=== PATIENT | female | born 1980 | race Caucasian/White ===

== ENCOUNTER → 2016-10-07 | Outpatient (CLI) | payer BC ==
[2016-10-07 09:31] LABS: CH 30.5; CHCM 33.3; HCT 35.3 % (34.0-46.0); HDW 2.86; HGB 11.3 gm/dL (11.4-16.0); MCH 29.6 pg (25.0-35.0); MCHC 32.1 g/dL (31.0-37.0); MCV 92.1 fL (80.0-100.0); Mean Platelet Volume 6.8; RBC 3.83 m/uL (3.80-5.40); RDW 13.2 % (11.5-15.5); WBC 10.7 k/uL (3.8-10.6)
== END | disposition home or self-care (01) ==
LOC: LABWHC1 07:45
PROVIDERS: ATTEND Obstetrics & Gynecology
DX: Z34.82 Encounter for supervision of other normal pregnancy, second trimester (principal); Z3A.00 Weeks of gestation of pregnancy not specified
CPT/HCPCS: 36415; 82950; 85027

== ENCOUNTER → 2016-11-24 | Outpatient (CLI) | payer BC ==
--- NOTE | 2016-11-24 14:03 | US ---
EXAMINATION TYPE: US OB anatomy transabd DATE OF EXAM: 11/24/2016 12:49 PM COMPARISON: NONE HISTORY: LGA TECHNIQUE: Transabdominal (TA) EXAM MEASUREMENTS: GESTATIONAL AGE / DATING Physician Established: (32 weeks/2 days) EDC: 01/17/17 Dates by LMP: unknown Dates by First Scan: no prior Dates by Current Scan for: (35 weeks/1 days) EDC: 12/28/16 SURVEY IUP: Single PLACENTA: Anterior PREVIA: Low Lying GAIL: 11.3 cm Normal CERVICAL LENGTH (transabdominal: norm > 3.0cm): 3.1 cm BIOMETRY PRESENTATION: Vertex LIE: Longitudinal BPD: 8.9 cm 36 weeks / 0 days HC: 32.1 cm 36 weeks / 2 days AC: 33.2 cm 37 weeks / 1 days FL: 6.6 cm 34 weeks / 1 days ESTIMATED WEIGHT IN GRAMS: 2870 grams ESTIMATED WEIGHT IN LBS/OZS: 6 lbs. 5 oz. WEIGHT PERCENTAGE BASED ON ESTABLISHED DATE: >97 % HC/AC: 0.97 normal FL/AC: 20.02 normal HEART RATE: 159 bpm RHYTHM: Normal ANATOMY SEEN (within normal limits): * Lateral Vent (< 1 cm) 0.8 cm Choroid Plexus (bilateral) Four Chamber Heart Stomach Situs Nose / Lips Diaphragm Kidneys (bilateral) Bladder Three Vessel Cord Longitudinal Spine Transverse Spine ANATOMY NOT SEEN: due to age and position * Cisterna Magna (< 1.1 cm) cm * Nuchal Fold (< 0.6 cm) cm * Cerebellum (varies with age) cm Arms (bilateral) Legs (bilateral) Cord Insert Outflow tracts: LVOT/RVOT Midline Falx Cavus Septi Pellucidi TECHNOLOGIST IMPRESSION: Single viable IUP 35wks/1day with DONOVAN of 12/28/16. Placenta appears low lyi ng IMPRESSION: Single intrauterine gestation estimated at 35 weeks 1 day gestation based on the current ultrasound m easurements. This would have a EDC of 12/28/2016. Correlate this with her physician establish EDC. Thi s gestational age appears advanced from the predicted gestational age. 2. Cardiac activity measures 159 bpm. 3. Low-lying placenta. 4. Some small parts are not evaluated due to positioning and age of gestation.
== END | disposition home or self-care (01) ==
LOC: RADUSWWP 12:14
PROVIDERS: ATTEND Obstetrics & Gynecology
DX: O44.43 Low lying placenta NOS or without hemorrhage, third trimester (principal); Z3A.35 35 weeks gestation of pregnancy
CPT/HCPCS: 76811

== ENCOUNTER → 2016-12-13 | Outpatient (CLI) | payer BC ==
--- NOTE | 2016-12-13 15:16 | US ---
EXAMINATION TYPE: US OB DATE OF EXAM: 12/13/2016 2:09 PM COMPARISON: NONE HISTORY: LGA TECHNIQUE: EXAM MEASUREMENTS: GESTATIONAL AGE / DATING Physician Established: (35 weeks/0 days) EDC: 01/17/2017 Dates by LMP: UNKNOWN Dates by First Scan: (37 weeks/6 days) EDC: 12/28/2016 Dates by Current Scan for: (37 weeks/1 days) EDC: 01/02/2017 SURVEY IUP: Single PLACENTA: Anterior PREVIA: No previa GAIL: 13.8 cm Normal CERVICAL LENGTH (transabdominal: norm > 3.0cm): 3.2 cm BIOMETRY PRESENTATION: Vertex BPD: 8.9 cm 36 weeks / 2 days HC: 32.9 cm 37 weeks / 4 days AC: 34.4 cm 38 weeks / 2 days FL: 7.3 cm 37 weeks / 3 days ESTIMATED WEIGHT IN GRAMS: 3308 grams ESTIMATED WEIGHT IN LBS/OZS: 7 lbs. 5 oz. WEIGHT PERCENTAGE BASED ON ESTABLISHED DATE: >97 % HC/AC: 0.9 FL/AC: 21 HEART RATE: 133 bpm RHYTHM: Normal LGA, office called, and results given to Stephanie of baby measuring 2 weeks greater than dates and gre ater than 97TH percentile. IMPRESSION: ADLER FETUS PRESENT IN A VERTEX LIE WITH A GESTATIONAL AGE OF 37 WEEKS 1 DAY +/- 3 WEEKS. ESTIMAT ED DATE OF CONFINEMENT BASED ON THIS EXAMINATION IS 01/02/2017. THIS IS DISCORDANT WITH THE MENSTRUAL AGE.
== END | disposition home or self-care (01) ==
LOC: RADUSWWP 13:39
PROVIDERS: ATTEND Obstetrics & Gynecology
DX: O36.63X0 Maternal care for excessive fetal growth, third trimester, not applicable or unspecified (principal); Z3A.37 37 weeks gestation of pregnancy
CPT/HCPCS: 76805

== ENCOUNTER 2017-01-14 06:01 | Inpatient (IN) | payer BC ==
--- NOTE | 2017-01-13 06:44 | P.HPOB ---
History of Present Illness H&P Date: 01/13/17 Chief Complaint: Patient is presenting for primary for macrosomia This patient is a pleasant 36-year-old 3 para 1 female estimated date of confinement 01/17/2017 estimated gestational age 39 and 4/7 weeks gestation who presents to labor and delivery for primary section secondary to suspected macrosomia and history of prolonged second stage of labor with previous . Patient's care is such that she delivered her first baby at 37 weeks and did not deliver here but her story was such that she remained complete for a very long period of time. That baby was only 6-1/2 pounds. This fetus is estimated to be most likely 8-9 pounds and I discussed issues with delivery and we've elected to proceed with section at this time. Patient's care has otherwise been uncomplicated with the exception of vulvar condyloma. Review of Systems Constitutional: Denies chills, Denies fever Ears, nose, mouth and throat: Denies headache, Denies sore throat Cardiovascular: Denies chest pain, Denies shortness of breath Respiratory: Denies cough Gastrointestinal: Reports heartburn Genitourinary: Reports Menstruation: Reports amenorrhea Musculoskeletal: Denies myalgias Integumentary: Denies pruritus, Denies rash Neurological: Denies numbness, Denies weakness Psychiatric: Denies anxiety, Denies depression Past Medical History Past Medical History: Thyroid Disorder Additional Past Medical History / Comment(s): Patient has known hypothyroidism and also a history of endometriosis. History of Any Multi-Drug Resistant Organisms: None Reported Past Surgical History: Adenoidectomy, Tonsillectomy Additional Past Surgical History / Comment(s): Patient has had laparoscopically with left ovarian cyst removal and wisdom tooth extraction. Past Anesthesia/Blood Transfusion Reactions: No Reported Reaction Past Psychological History: No Psychological Hx Reported Smoking Status: Never smoker Past Alcohol Use History: None Reported Past Drug Use History: None Reported Medications and Allergies Home Medications Medication Instructions Recorded Confirmed Type No.77/Iron Asp Gly/FA 1 each PO 01/04/17 History [Prenate Star Tablet] Ranitidine HCl [Zantac] 75 mg PO PRN 01/04/17 History Allergies Allergy/AdvReac Type Severity Reaction Status Date / Time No Known Allergies Allergy Verified 01/04/17 15:02 Exam - OBG Physical Exam Abdomen: bowel sounds normal, no diffuse tenderness, no bruit present, no guarding noted, no hepatomegaly, no splenomegaly, no mass Vulva: both: condyloma Vagina: normal moisture, no discharge Cervix: Cervix in the office was closed. Uterus: enlarged (Fundal height is greater than stated dates.) Results blood work shows she is O+, rubella immune, RPR nonreactive, hepatitis B negative, Glucola was normal, group B strep was positive, ultrasounds of shown macrosomia. Estimated weight is 8-9 pounds. Assessment and Plan (1) Third trimester Narrative/Plan: This is a pleasant 36-year-old 3 para 1 female 39-4/7 weeks gestation with suspected macrosomia and history of prolonged second stage previous is presenting for primary section. Patient and I discussed the surgery in detail including the risks of infection, bleeding, possible injury bowel, bladder, vessels, and other organs. She also understands risk of DVT and pulmonary embolism. All the patient's questions are answered and a written consent is obtained. Plan is primary low transverse section. Status: Acute (2) macrosomia during in third trimester Status: Acute (3) History of prolonged second stage labor , currently Status: Acute (4) Group B streptococcal carriage complicating Status: Acute
[2017-01-13 11:45] VITALS: BMI 29.9
[2017-01-14] MEDS ORDERED: LACTATED RINGERS 1,000 ML IV SCH (06:10)
[2017-01-14] MEDS ORDERED: CITRIC ACID-SODIUM CITRATE 15 ML CUP PO ONE (06:10)
[2017-01-14] MEDS ORDERED: LACTATED RINGERS 1,000 ML IV ONE (06:10)
[2017-01-14 06:19] LABS: Basophils # (A) 0.1 k/uL (0-0.2); Basophils % (A) 1 %; CH 29.6; CHCM 33.4; Eosinophils # (A) 0.3 k/uL (0-0.7); Eosinophils % (A) 3 %; HCT 35.8 % (34.0-46.0); HDW 3.05; HGB 11.7 gm/dL (11.4-16.0); Luc % (Auto) 3; Lymphocytes % (A) 27 %; MCH 29.1 pg (25.0-35.0); MCHC 32.6 g/dL (31.0-37.0); MCV 89.1 fL (80.0-100.0); Mean Platelet Volume 7.7; Monocytes # (A) 0.5 k/uL (0-1.0); Monocytes % (A) 4 %; Neutrophils # (A) 7.1 k/uL (1.3-7.7); Neutrophils % (A) 63 %; RBC 4.02 m/uL (3.80-5.40); RDW 13.9 % (11.5-15.5); WBC 11.3 k/uL (3.8-10.6); WBC (Perox) 11.95
[2017-01-14] MEDS ORDERED: ceFAZolin 2 GM in SODIUM CHLORIDE 0.9% 100 ML IVPB ONE (07:14)
[2017-01-14] MEDS ORDERED: NALBUPHINE 10 MG/ML AMPUL ONE (07:47)
[2017-01-14] MEDS ORDERED: OXYTOCIN 10 UNIT/ML 1 ML VIAL ONE (07:47)
[2017-01-14] MEDS ORDERED: ONDANSETRON 4 MG/2 ML VIAL ONE (07:47)
[2017-01-14] MEDS ORDERED: KETOROLAC 30 MG/ML 1 ML VIAL ONE (07:47)
[2017-01-14] MEDS ORDERED: MORPHINE SULFATE (PF) 0.3 MG/0.3 ML SYR ONE (07:47)
[2017-01-14] MEDS ORDERED: PHENYLEPHRINE-0.9% NACL SYG 1 MG/10 ML SYRINGE ONE (07:47)
--- NOTE | 2017-01-14 08:36 | P.OP ---
Date of Procedure: 01/14/17 Preoperative Diagnosis: #1: 39-4/7 weeks . #2: Suspected macrosomia. #3: History of prolonged second stage of labor Postoperative Diagnosis: #1: Same #2: Nuchal cord 1 Procedure(s) Performed: Primary low transverse section Anesthesia: spinal Surgeon: Shravan Rodgers Recreation Facilities Supervisor #1: Prerna Beltran Estimated Blood Loss (ml): 800 Pathology: other (Placenta) Condition: stable Disposition: floor Indications for Procedure: Please see dictated H&P for intimate details of this patient's admission. Brief summary is a pleasant 36-year-old 3 para 1 female 39-4/7 weeks gestation who is admitted for primary section secondary to suspected macrosomia and history of prolonged second stage of labor. Patient understands this surgery and risks including risks of infection, bleeding, possible injury bowel, bladder, vessels, and other organs. She also understands risk of DVT and pulmonary embolism. All the patient's questions are answered and written consent is obtained. Operative Findings: This is a vigorous viable female infant Apgars 9 and 10 delivery time is 0806 hrs. Description of Procedure: This patient has a Argueta catheter placed to straight drain. She subsequently taken to the operating room where she is laid in the supine position. She sat up and spinal anesthetic is administered without incident. With an adequate level of anesthesia she has abdominal prep and drape. Scalpels and taken Pfannenstiel skin incision is then made. A second scalpel is taken down the fascia and the fascia scored with a knife. Fascial incision extended bilaterally using the Gonzales scissors. Fascia is then dissected sharply off the rectus muscles. Rectus muscles are and the peritoneum was identified and entered sharply. Peritoneal incision extended superior and inferior without difficulty. Bladder blade is then placed. Bladder peritoneum was taken off the lower uterine segment sharply. A low transverse uterine incision is then made, and using a hemostat I enter the uterine cavity bluntly and there is loss of clear fluid. This incision is extended bluntly. The infant's head is then guided through the incision with fundal pressure. Mouth and nares are bulb suctioned. Is a nuchal cord 1 which is reduced. We then have deliver the anterior and posterior shoulder and rest this 's body. Vigorous viable female infant Apgars 9 and 10 delivery time was 0806 hrs. After delivery of the the umbilical cords doubly clamped and cut appears to be trivascular. Placenta is then manually extracted intact. Uterus is then externalized and the uterine incision demarcated with Morales clamps. Uterine incision closed using 0 Vicryl running locked fashion in 2 layers. Excellent hemostasis is noted. Bladder peritoneum was then reapproximated using a 3-0 Vicryl. Excess fluid is removed from the abdomen and pelvis. Uterus tubes and ovaries appear normal for term gestation. Parietal peritoneum was then closed using 0 Vicryl running fashion. Rectus muscles reapproximated in 0 Vicryl interrupted fashion. Fascia is then closed using 0 PDS. Fascial incision is intact and hemostatic. Subcutaneous tissues and closed using a 3-0 Vicryl. Skin is and closed using moira. Good hemostasis is noted sterile dressing is applied. All counts are correct 3. There are no complications. and mother taken the birthing suite in satisfactory condition.
[2017-01-14] MEDS ORDERED: diphenhydrAMINE 50 MG/ML 1 ML VIAL IVP PRN (08:51)
[2017-01-14] MEDS ORDERED: SIMETHICONE 80 MG CHEWABLE PO PRN (08:51)
[2017-01-14] MEDS ORDERED: Acetaminophen-Codeine 300-30mg TAB PO PRN (08:51)
[2017-01-14] MEDS ORDERED: METOCLOPRAMIDE 5 MG/ML 2 ML VIAL IVP PRN (08:51)
[2017-01-14] MEDS ORDERED: OXYTOCIN 30 UNITS/500 ML NS 30 UNIT in SALINE 1 500ML.BAG IV SCH (08:51)
[2017-01-14] MEDS ORDERED: diphenhydrAMINE 25 MG CAP PO PRN (08:51)
[2017-01-14] MEDS ORDERED: ACETAMINOPHEN TAB 325 MG TAB PO PRN (08:51)
[2017-01-14] MEDS ORDERED: NALOXONE 0.4 MG/ML 1 ML VIAL IV PRN (08:51)
[2017-01-14] MEDS ORDERED: ZOLPIDEM 5 MG TAB PO PRN (08:51)
[2017-01-14] MEDS ORDERED: ONDANSETRON 4 MG/2 ML VIAL IVP PRN (08:51)
[2017-01-14] MEDS: SENNOSIDES-DOCUSATE SODIUM 1 EACH TAB PO SCH ×2 (12:30→20:03)
[2017-01-14] MEDS: KETOROLAC 30 MG/ML 1 ML VIAL IVP PRN ×2 (15:10→22:06)
[2017-01-14] MEDS: LACTATED RINGERS 1,000 ML IV SCH ×2 (21:58→21:59)
[2017-01-15] MEDS: LACTATED RINGERS 1,000 ML IV SCH ×2 (04:43→19:52)
[2017-01-15] MEDS: KETOROLAC 30 MG/ML 1 ML VIAL IVP PRN (05:13)
--- NOTE | 2017-01-15 06:27 | P.PNOBGPC ---
Subjective - Subjective Patient reports: Reports appetite normal, Reports voiding normally, Reports pain well controlled, Reports ambulating normally : doing well Objective - Vital Signs Latest vital signs: Vital Signs Temp Pulse Resp BP Pulse Ox 01/15/17 04:00 97.8 F 83 16 109/60 01/15/17 00:00 98.4 F 71 16 93/59 01/14/17 20:00 98.4 F 74 16 111/72 01/14/17 16:00 98.8 F 63 16 107/67 01/14/17 12:00 97.8 F 67 14 107/57 97 01/14/17 10:53 96.9 F L 77 14 100/63 01/14/17 10:23 77 16 108/69 01/14/17 09:53 75 14 109/67 01/14/17 09:38 72 14 110/74 01/14/17 09:23 66 14 105/69 01/14/17 09:08 97 14 117/73 01/14/17 08:53 97.8 F 86 16 110/68 97 Intake and Output 01/14/17 01/14/17 01/15/17 14:59 22:59 06:59 Output Total 775 Balance -775 Output: Urine 775 Other: Voiding Method Indwelling Catheter # Voids 1 2 - Exam Lungs: bilateral: normal Chest: Normal S1, Normal S2 Extremities: Present: normal Abdomen: Present: normal appearance, soft. Absent: distention, tenderness Incision: Present: normal, dry, intact Uterus: Present: normal, firm Assessment and Plan (1) Third trimester Narrative/Plan: Postoperative day #1. Patient is resting without complaints. Vital signs are stable she is afebrile. Uterus is firm nontender and her incision is intact and dry. My impression this is a normal postoperative course. Plan is to continue routine postoperative care, allow the patient to shower, check a CBC, encourage ambulation. Current Visit: Yes Status: Acute Code(s): Z33.1 - STATE, INCIDENTAL SNOMED Code(s): 56309419 (2) macrosomia during in third trimester Current Visit: Yes Status: Acute Code(s): O36.63X0 - MATERNAL CARE FOR EXCESS GROWTH, THIRD TRIMESTER, UNSP SNOMED Code(s): 078732603 (3) History of prolonged second stage labor , currently Current Visit: Yes Status: Acute Code(s): O09.299 - SUPRVSN OF PREG W POOR REPRODCTV OR OBSTET HISTORY, UNSP TRI SNOMED Code(s): 204000510 (4) Group B streptococcal carriage complicating Current Visit: Yes Status: Acute Code(s): O99.820 - STREPTOCOCCUS B CARRIER STATE COMPLICATING SNOMED Code(s): 972166762936214
[2017-01-15 07:31] LABS: Basophils % (A) 0 %; CH 29.7; CHCM 33.5; Eosinophils # (A) 0.2 k/uL (0-0.7); Eosinophils % (A) 2 %; HCT 31.4 % (34.0-46.0); HDW 3.15; HGB 10.4 gm/dL (11.4-16.0); Luc # (Auto) 0.24; Luc % (Auto) 2; Lymphocytes # (A) 1.9 k/uL (1.0-4.8); Lymphocytes % (A) 18 %; MCH 29.4 pg (25.0-35.0); MCV 89.2 fL (80.0-100.0); Monocytes # (A) 0.4 k/uL (0-1.0); Monocytes % (A) 4 %; Neutrophils # (A) 7.8 k/uL (1.3-7.7); Neutrophils % (A) 74 %; RBC 3.52 m/uL (3.80-5.40); RDW 14.1 % (11.5-15.5); WBC 10.5 k/uL (3.8-10.6); WBC (Perox) 11.08
[2017-01-15] MEDS: SENNOSIDES-DOCUSATE SODIUM 1 EACH TAB PO SCH ×2 (09:42→19:51)
[2017-01-15] MEDS: Acetaminophen-Codeine 300-30mg TAB PO PRN ×3 (09:42→22:58)
[2017-01-15] MEDS: IBUPROFEN 600 MG TAB PO PRN ×2 (13:22→19:51)
--- NOTE | 2017-01-15 18:33 | P.PN ---
Subjective status post csection; doing well Objective - Vital Signs Vital signs: Vital Signs Temp 98.2 F 01/15/17 16:00 Pulse 81 01/15/17 16:00 Resp 18 01/15/17 16:00 BP 112/67 01/15/17 16:00 Pulse Ox 97 01/15/17 16:00 Intake & Output 01/14/17 01/15/17 01/15/17 18:59 06:59 18:59 Output Total 300 475 Balance -300 -475 Output: Urine 300 475 Other: Voiding Method Indwelling Catheter # Voids 2 - Labs CBC & Chem 7: 01/15/17 07:14 Labs: Abnormal Lab Results - Last 24 Hours (Table) 01/15/17 Range/Units 07:14 RBC 3.52 L (3.80-5.40) m/uL Hgb 10.4 L (11.4-16.0) gm/dL Hct 31.4 L (34.0-46.0) % Neutrophils # 7.8 H (1.3-7.7) k/uL
[2017-01-16] MEDS: IBUPROFEN 600 MG TAB PO PRN ×2 (01:55→10:21)
[2017-01-16] MEDS: Acetaminophen-Codeine 300-30mg TAB PO PRN ×2 (06:29→12:10)
--- NOTE | 2017-01-16 06:38 | P.PNOBGPC ---
Subjective - Subjective Patient reports: Reports appetite normal, Reports voiding normally, Reports pain well controlled, Reports ambulating normally : doing well Objective - Vital Signs Latest vital signs: Vital Signs Temp Pulse Resp BP Pulse Ox 01/15/17 23:38 98.2 F 77 16 107/67 01/15/17 16:00 98.2 F 81 18 112/67 97 01/15/17 08:00 98.6 F 98 18 115/70 Intake and Output 01/15/17 01/15/17 01/16/17 14:59 22:59 06:59 Other: # Voids 2 - Exam Lungs: bilateral: normal Chest: Normal S1, Normal S2 Extremities: Present: normal Abdomen: Present: normal appearance, soft. Absent: distention, tenderness Incision: Present: normal, dry, intact Uterus: Present: normal, firm - Labs Labs: Abnormal Lab Results - Last 24 Hours (Table) 01/15/17 Range/Units 07:14 RBC 3.52 L (3.80-5.40) m/uL Hgb 10.4 L (11.4-16.0) gm/dL Hct 31.4 L (34.0-46.0) % Neutrophils # 7.8 H (1.3-7.7) k/uL Assessment and Plan (1) Third trimester Narrative/Plan: Postoperative day #2. Patient wishes to go home. Vital signs are stable she is afebrile. Uterus is firm nontender and her incision is intact and dry. CBC yesterday was normal. Patient is ambulating, urinating, eating regular diet. Patient's felt to be stable for discharge home follow up with me in 1 week. Current Visit: Yes Status: Acute Code(s): Z33.1 - STATE, INCIDENTAL SNOMED Code(s): 75579678 (2) macrosomia during in third trimester Current Visit: Yes Status: Acute Code(s): O36.63X0 - MATERNAL CARE FOR EXCESS GROWTH, THIRD TRIMESTER, UNSP SNOMED Code(s): 435806416 (3) History of prolonged second stage labor , currently Current Visit: Yes Status: Acute Code(s): O09.299 - SUPRVSN OF PREG W POOR REPRODCTV OR OBSTET HISTORY, UNSP TRI SNOMED Code(s): 256823656 (4) Group B streptococcal carriage complicating Current Visit: Yes Status: Acute Code(s): O99.820 - STREPTOCOCCUS B CARRIER STATE COMPLICATING SNOMED Code(s): 778249437186851
--- NOTE | 2017-01-16 06:39 | P.DS ---
Providers Date of admission: 01/14/17 06:01 Expected date of discharge: 01/16/17 Attending physician: Shravan Rodgers Primary care physician: Sarahi Ulloa - Discharge Diagnosis(es) (1) Third trimester Current Visit: Yes Status: Acute (2) macrosomia during in third trimester Current Visit: Yes Status: Acute (3) History of prolonged second stage labor , currently Current Visit: Yes Status: Acute (4) Group B streptococcal carriage complicating Current Visit: Yes Status: Acute Hospital Course: Please see dictated H&P for intimate details of this patient's admission. Brief summary is a pleasant 36-year-old 3 para 1 female 39-4/7 weeks gestation admitted to labor and delivery for elective section secondary to suspected macrosomia and history of prolonged second stage of labor. Patient is admitted undergoes above-named surgery. By day #2 she is doing well felt to be stable for discharge home follow up with me in 1 week. Procedures: Primary low transverse section Patient Condition at Discharge: Good Plan - Discharge Summary New Discharge Prescriptions: Acetaminophen-Codeine 300-30mg [Tylenol w/codeine #3] 1 - 2 each PO Q4HR PRN # 30 tab PRN Reason: Mild Pain Ibuprofen [Motrin] 600 mg PO Q6HR PRN #40 tab PRN Reason: Mild Pain Or Fever >= 100.5 Discharge Medication List No.77/Iron Asp Gly/FA [Prenate Star Tablet] 1 each PO DAILY 01/04/17 [ History] Ranitidine HCl [Zantac] 75 mg PO DAILY PRN 01/04/17 [History] Acetaminophen-Codeine 300-30mg [Tylenol w/codeine #3] 1 - 2 each PO Q4HR PRN # 30 tab 01/14/17 [Rx] Ibuprofen [Motrin] 600 mg PO Q6HR PRN #40 tab 01/14/17 [Rx] Follow up Appointment(s)/Referral(s): Shravan Rodgers MD [STAFF PHYSICIAN] - 01/24/17 1:30 pm (Patient also has a appointment on February 25 and 9:15 AM.) Patient Instructions/Handouts: (DC) Activity/Diet/Wound Care/Special Instructions: No strenuous activities or heavy lifting for 6 weeks. No intercourse or anything per vagina for 6 weeks. Please call if any fever, chills, excessive vaginal bleeding, and/or abdominal pain. Discharge Disposition: HOME SELF-CARE
[2017-01-16] MEDS: SENNOSIDES-DOCUSATE SODIUM 1 EACH TAB PO SCH (08:36)
[2017-01-16 08:56] VITALS: BP 114/71; PULSE 87; RESP 14; TEMP 97.6
== END 2017-01-16 12:10 | disposition home or self-care (01) | DRG 765 ==
LOC: 4FBP 06:01
PROVIDERS: ADMIT Obstetrics & Gynecology; ATTEND Obstetrics & Gynecology
PROC: 10D00Z1 Extraction of Products of Conception, Low, Open Approach (ICD-10-PCS; principal; 2017-01-14 08:00)
DX: O36.63X0 Maternal care for excessive fetal growth, third trimester, not applicable or unspecified (principal); O98.32 Other infections with a predominantly sexual mode of transmission complicating childbirth; Z37.0 Single live birth; A63.0 Anogenital (venereal) warts; O99.824 Streptococcus B carrier state complicating childbirth; Z3A.39 39 weeks gestation of pregnancy; O69.81X0 Labor and delivery complicated by cord around neck, without compression, not applicable or unspecified
CPT/HCPCS: 85025; 86850; 86900; 86901; 88307

== ENCOUNTER → 2018-02-15 | Outpatient (CLI) | payer BC ==
--- NOTE | 2018-02-15 14:13 | EST ---
EXERCISE STRESS DATE OF SERVICE: 02/15/2018 AGE: 37 SEX: F HT: 5'5" WT: 145 PROTOCOL: Lucio Stress Test STAGE: 5 DURATION OF EXERCISE: 14:00 HEART RATE REST: 73 BLOOD PRESSURE REST: 103/69 MAXIMUM HEART RATE ACHIEVED: 179 MAXIMUM BLOOD PRESSURE: 160/74 85% MPHR: 157 100% MPHR: 185 METS: 14.7 INDICATIONS: Chest pain. CLINICAL INFORMATION: Baseline rhythm is sinus mechanism, rate 73, normal axis, intervals, normal echocardiogram. Baseline blood pressure 103/69 mmHg. Patient exercised on Lucio protocol for 14 minutes reaching peak rate of 179 beats per minute, which is equal to 96% of maximum predicted heart rate. Peak blood pressure 160/74 mmHg. Test was terminated due to fatigue. There was no chest pain. Electrocardiographic monitoring revealed no evidence of diagnostic ischemic ST deviation. CONCLUSION: 1. Good exercise tolerance with no symptoms of chest pain. 2. Normal electrocardiograph response to exercise but no evidence of exercise-induced ischemia. MMODL / IJN: [id number] /
== END | disposition home or self-care (01) ==
LOC: RADNMMAIN 10:39
PROVIDERS: ATTEND Family Medicine
DX: R06.02 Shortness of breath (principal); R07.9 Chest pain, unspecified
CPT/HCPCS: 93017

== ENCOUNTER → 2018-12-01 | Outpatient (CLI) | payer OTHER ==
--- NOTE | 2018-12-01 08:18 | MM ---
Reason for exam: screening (asymptomatic). Baseline mammogram. History: Patient had first child at age 33. Family history of breast cancer in paternal grandmother at age 56, breast cancer in maternal grandmother at age 77, and breast cancer in paternal aunt at age 40. Taking hormonal contraceptives beginning at age 18. Physical Findings: Nurse did not find any significant physical abnormalities on exam. MG 3D Screening Mammo W/Cad Bilateral CC and MLO view(s) were taken. The breast tissue is heterogeneously dense. This may lower the sensitivity of mammography. There is no discrete abnormality. These results were verbally communicated with the patient and result sheet given to the patient on 12/01/18. ASSESSMENT: Negative, BI-RAD 1 RECOMMENDATION: Routine screening mammogram of both breasts in 1 year.
== END ==
LOC: RADMAMWWP 06:58
PROVIDERS: ATTEND Obstetrics & Gynecology
DX: Z12.31 Encounter for screening mammogram for malignant neoplasm of breast (principal); Z80.3 Family history of malignant neoplasm of breast
CPT/HCPCS: 77063; 77067

== ENCOUNTER 2020-06-20 05:58 | Day surgery (SDC) | payer BC, OTHER ==
[2020-06-18 12:45] VITALS: BMI 23.3
--- NOTE | 2020-06-19 12:26 | P.HPOB ---
History of Present Illness H&P Date: 06/19/20 Chief Complaint: High-grade cervical dysplasia and pelvic pain This patient is a pleasant 40-year-old 3 para 2 female who is presenting for LEEP excision of the ectocervix and endocervix secondary to high-grade cervical biopsy on colposcopy. Patient is also presenting for diagnostic laparoscopy secondary to severe pelvic pain and history of endometriosis. Patient's history is such that she had a positive be that showed CASSANDRA-2 (high- grade lesion) at 1:00. Patient I discussed options including cryotherapy versus LEEP excision and she is requested LEEP excision. Patient is also requested sent she is having anesthesia to proceed with a diagnostic laparoscopy because she's had long-standing issue with pelvic pain and did have a laparoscopy in the past by another physician that showed endometriosis. She and I discussed getting an ultrasound and expectant management but she wishes to proceed with laparoscopy to determine if this pain is from her endometriosis. Review of Systems Constitutional: Reports as per HPI Past Medical History Past Medical History: Pneumonia, Thyroid Disorder Additional Past Medical History / Comment(s): hx migraines, endometriosis, occ low BP, no current tx for thyroid, History of Any Multi-Drug Resistant Organisms: None Reported Past Surgical History: Adenoidectomy, Section, Tonsillectomy Additional Past Surgical History / Comment(s): laparoscopic surgery with left ovarian cyst removal, wisdom tooth extraction. Past Anesthesia/Blood Transfusion Reactions: Motion Sickness Past Psychological History: No Psychological Hx Reported Smoking Status: Never smoker Past Alcohol Use History: None Reported Past Drug Use History: None Reported - Past Family History Mother Family Medical History: No Reported History Medications and Allergies Home Medications Medication Instructions Recorded Confirmed Type Multivitamins, Thera [Multivitamin 1 tab PO DAILY 06/18/20 06/18/20 History (formulary)] Allergies Allergy/AdvReac Type Severity Reaction Status Date / Time No Known Allergies Allergy Verified 06/18/20 12:35 Exam - OBG Physical Exam Abdomen: bowel sounds normal, no diffuse tenderness, no bruit present, no guarding noted, no hepatomegaly, no splenomegaly, no mass Vulva: both: normal Vagina: normal moisture, no discharge Cervix: no lesion, no discharge Uterus: normal size, normal contour Results Colposcopy shows a CASSANDRA-2 lesion at 1:00 of the ectocervix. Assessment and Plan Assessment: This is a pleasant 40-year-old 3 para 2 female with high-grade ectocervical dysplasia and chronic pelvic pain. Plan is colposcopy with LEEP excision of the ectocervix endocervix and diagnostic laparoscopy with possible cauterization of endometriosis. Patient and I have discussed both of these surgeries in detail. Patient understands that a laparoscopy and apparently has risks including risks of infection, bleeding, possible injury bowel, bladder, vessels, and/or other organs. Patient also understands that there is a possibility that the diagnostic laparoscopy would not show any pathology. In regards to her LEEP she understands this has risks of infection, bleeding, possible cervical incompetence in future loss. All the patient's questions are answered and a written consent is obtained. (1) High grade squamous intraepithelial lesion of cervix Status: Acute Code(s): R87.613 - HIGH GRADE INTREPITH LESION CYTO SMR CRVX (HGSIL) SNOMED Code(s): 412182142 (2) Pelvic pain Status: Acute Code(s): R10.2 - PELVIC AND PERINEAL PAIN SNOMED Code(s): 10796514 (3) History of endometriosis Status: Acute Code(s): Z87.42 - PERSONAL HISTORY OF OTH DISEASES OF THE FEMALE GENITAL TRACT SNOMED Code(s): 102940252
[~2020-06-20 05:58] MED LIST: DEXAMETHASONE SOD PHOSPHATE 10 MG/ML 1 ML VIAL IV ONE; HYDROmorphone 0.5 MG/0.5 ML SYRINGE IVP PRN; KETOROLAC 15 MG/ML 1 ML VIAL IVP SCH; LACTATED RINGERS 1,000 ML IV SCH; LIDOCAINE 1% (10MG/ML) FOR IV START INTRADERMA PRN; METOCLOPRAMIDE 5 MG/ML 2 ML VIAL IVP PRN; ONDANSETRON 4 MG/2 ML VIAL IVP ONE; Pre Op ABX Message 1 EACH MISC MISCELLANE ONE; SCOPOLAMINE 1.5MG/72HR PATCH TRANSDERM ONE
[2020-06-20] MEDS ORDERED: MIDAZOLAM 2 MG/2 ML VIAL ONE (06:45)
[2020-06-20] MEDS ORDERED: KETOROLAC 15 MG/ML 1 ML VIAL ONE (06:45)
[2020-06-20] MEDS ORDERED: fentaNYL (PF) 50 MCG/ML 2 ML AMP ONE (06:45)
[2020-06-20] MEDS ORDERED: ROCURONIUM BROMIDE 10 MG/ML 5 ML VIAL IV ONE (06:45)
[2020-06-20] MEDS ORDERED: NEOSTIGMINE 1 MG/ML 10 ML VIAL ONE (06:45)
[2020-06-20] MEDS ORDERED: LIDOCAINE 1% INJ 10MG/ML (20 ML MDV) ONE (06:45)
[2020-06-20] MEDS ORDERED: GLYCOPYRROLATE 0.2 MG/ML 2 ML VIAL ONE (06:45)
[2020-06-20] MEDS ORDERED: PROPOFOL 10 MG/ML 20 ML VIAL IV ONE (06:45)
[2020-06-20] MEDS ORDERED: BUPIVACAINE (PF) 0.5% 30 ML VIAL SQ ONE (07:26)
[2020-06-20] MEDS ORDERED: FERRIC SUBSULFATE (MONSELS) JAR TOPICAL ONE (07:35)
[2020-06-20] MEDS ORDERED: LACTATED RINGERS 1,000 ML IV ONE (07:40)
[2020-06-20 08:02] VITALS: TEMP 96.9
--- NOTE | 2020-06-20 08:03 | P.OP ---
Date of Procedure: 06/20/20 Preoperative Diagnosis: #1: High-grade ectocervical dysplasia. #2: Chronic pelvic pain with history of endometriosis Postoperative Diagnosis: #1: Same, no evidence of endometriosis Procedure(s) Performed: #1: Diagnostic laparoscopy. #2: Colposcopy with LEEP excision of the ectocervix and endocervix Anesthesia: CONSUELO Surgeon: Shravan Rodgers Estimated Blood Loss (ml): 20 Urine output (ml): 50 Pathology: other (Ectocervix and endocervix) Condition: stable Disposition: PACU Indications for Procedure: Please see dictated H&P for intimate details of this patient's admission. Brief summary this is a pleasant 40-year-old female who had a colposcopy for an abnormal Pap smear that showed high-grade cervical dysplasia (CASSANDRA-2) of the ectocervix. Patient denied discussed options for treatment including cryo surgery versus LEEP excision of this area and she is requested LEEP excision of this area. Patient also has a long history of chronic pelvic pain and in the past has had a laparoscopy that demonstrated endometriosis. Again the patient and I discussed options, expectant versus laparoscopy for further evaluation and she wished to proceed with laparoscopy. Patient I discussed laparoscopy and its risks including risks of infection, bleeding, possible injury to bowel, bladder, vessels, and/or other organs. We also discussed the LEEP procedure and risks including risks of infection, bleeding, possible cervical incompetence in future loss. All the patient's questions are answered written consent is obtained. Operative Findings: This patient had a normal-appearing pelvis. The upper abdomen grossly appeared normal as well. Description of Procedure: This patient is taken to the operating room where she is laid in the supine position. She subsequently undergoes general endotracheal anesthesia without incident. With an adequate level of anesthesia, she's placed in the dorsal lithotomy position. She has a vaginal perineal abdominal prep and drape. First go below and place a speculum in the vagina, grabbed the anterior lip of the cervix with an Allis clamp. Because I'm doing the LEEP, I do not place an endocervical cannula. A sponge stick is placed gently into the vagina and the speculum was removed. The bladder is drained with a red Amaya which is left in place. Then changed gloves go up above. Make a 1 cm infraumbilical incision. Using a 10 mm bladeless optical trocar I placed the trocar into the peritoneal cavity. With peritoneal placement confirmed, pneumoperitoneum is created to 12 mm of carbon dioxide gas. With this done, a 5 mm incision is made approximately 2 fingerbreadths above the symphysis pubis. Through this a 5 mm bladeless trochars placed under direct visualization. Using a blunt probe I gently visualize the entire pelvis and abdomen. The uterus tubes and ovaries all appeared normal. The cul-de-sac appeared normal. The upper abdomen grossly appeared normal. There was no evidence of endometriosis. With this done the lo wer trochars removed and good hemostasis is noted. The pneumoperitoneum was reduced and the upper trochars removed. The incisions are then closed using a 4-0 Vicryl. Steri-Strips and sterile dressing applied. I did infiltrated with half percent Marcaine for postoperative pain control. At this done we went down below. A laser speculum was placed into the vagina. Colposcopy is performed. Using a large LEEP loop the entire transformation zone is removed using a 60-70 cutting/cautery setting. A small LEEP loop was then used to excise a portion of the endocervix. Cauterization is then used to cauterize the ectocervix endocervical bed. Excellent hemostasis is noted. Monsel solution is applied for added hemostasis. With this done and this hemostasis assured the procedure is ended. Speculum was removed. All counts are correct 3. There are no complications. Patient's is awakened from anesthesia and taken recovery room satisfactory condition.
[2020-06-20 08:46] VITALS: RESP 16
[2020-06-20] MEDS ORDERED: Acetaminophen-Codeine 300-30mg TAB PO ONE (09:00)
[2020-06-20] MEDS ORDERED: Acetaminophen-Codeine 300-30mg TAB ONE (09:02)
[2020-06-20 10:12] VITALS: BP 98/62; PULSE 60
== END 2020-06-20 10:24 | disposition home or self-care (01) ==
LOC: OR 05:58
PROVIDERS: ATTEND Obstetrics & Gynecology
DX: D06.1 Carcinoma in situ of exocervix (principal); G89.29 Other chronic pain; R10.2 Pelvic and perineal pain; E07.9 Disorder of thyroid, unspecified; I95.9 Hypotension, unspecified; Z98.890 Other specified postprocedural states; Z87.42 Personal history of other diseases of the female genital tract; Z87.01 Personal history of pneumonia (recurrent); G43.909 Migraine, unspecified, not intractable, without status migrainosus
CPT/HCPCS: 81025; 88305; 88307; 57461; J2250; J1100; J2710; J2405; J2001; J3010; J1885; J2704; J1170

== ENCOUNTER → 2021-02-06 | Outpatient (CLI) | payer BC ==
--- NOTE | 2021-02-10 08:19 | MM ---
Reason for exam: screening (asymptomatic). Last mammogram was performed 2 years and 2 months ago. History: Patient had first child at age 33. Family history of breast cancer in paternal grandmother at age 56, breast cancer in maternal grandmother at age 77, and breast cancer in paternal aunt at age 40. Took hormonal contraceptives beginning at age 18. Physical Findings: A clinical breast exam by your physician is recommended on an annual basis and results should be correlated with mammographic findings. MG 3D Screening Mammo W/Cad Bilateral CC and MLO view(s) were taken. Prior study comparison: December 01, 2018, bilateral MG 3d screening mammo w/cad. The breast tissue is heterogeneously dense. This may lower the sensitivity of mammography. ASSESSMENT: Benign, BI-RAD 2 RECOMMENDATION: Routine screening mammogram of both breasts in 1 year. Manage on a clinical basis with regard to bilateral diffuse breast tenderness.
== END | disposition home or self-care (01) ==
LOC: RADMAMWWP 16:00
PROVIDERS: ATTEND Obstetrics & Gynecology
DX: Z12.31 Encounter for screening mammogram for malignant neoplasm of breast (principal); Z80.3 Family history of malignant neoplasm of breast
CPT/HCPCS: 77063; 77067

== ENCOUNTER → 2022-10-07 | Outpatient (CLI) | payer BC ==
--- NOTE | 2022-10-10 18:48 | MM ---
Reason for Exam: Screening (asymptomatic). Last mammogram was performed 1 year(s) and 8 month(s) ago. Patient History: Menarche at age 16. First Full-Term at age 33. Late child-bearing (after 30). Hormonal Contraceptives, starting at age 18. Paternal grandmother had breast cancer, age 56. Maternal grandmother had breast cancer, age 77. Paternal aunt had breast cancer, age 40. Last menstrual period: 09/26/2022 Risk Values: Ariana 5 year model risk: 0.7%. NCI Lifetime model risk: 12.5%. Prior Study Comparison: 12/01/2018 Bilateral Screening Mammogram, [facility]. 02/06/2021 Bilateral Screening Mammogram, [facility]. Tissue Density: The breast tissue is heterogeneously dense. This may lower the sensitivity of mammography. Findings: Analyzed By CAD. Chronic nodularity lateral right breast. There is no suspicious group of microcalcifications or new suspicious mass in either breast. Overall Assessment: Benign, BI-RAD 2 Management: Screening Mammogram of both breasts in 1 year. 1. Patient should continue monthly self breast exams. 2. A clinical breast exam by your physician is recommended on an annual basis. 3. This exam should not preclude additional follow-up of suspicious palpable abnormalities. Electronically signed and approved by: Marcello Cortés M.D. Radiologist
== END | disposition home or self-care (01) ==
LOC: RADMAMWWP 16:02
PROVIDERS: ATTEND Obstetrics & Gynecology
DX: Z12.31 Encounter for screening mammogram for malignant neoplasm of breast (principal); Z80.3 Family history of malignant neoplasm of breast
CPT/HCPCS: 77063; 77067

== ENCOUNTER → 2024-02-21 | Outpatient (CLI) | payer OTHER ==
[2024-02-21 13:38] VITALS: BP 122/89; PULSE 88; RESP 16; TEMP 98.4
--- NOTE | 2024-02-21 15:29 | P.HPOB ---
History of Present Illness H&P Date: 02/21/24 Chief Complaint: The patient is here for her routine gynecologic exam. This is a 43-year-old -0-1-2 with an LMP of 01/30/2024. Patient is here to establish with this office. She previously saw Dr. Rodgers for her ongoing gynecologic care. She currently uses abstinence for control and states she will use condoms if she is sexually active. Menstrual periods are regular every month. She does have cramping but typically does not require medication for this. She has 3 days of heavier flow during which time she will have to change her pads up to 2 hours. She had an abnormal Pap smear in 2019 and colposcopic biopsy revealed high-grade LEN. She did undergo a LEEP procedure of the cervix on 06/20/2020. The pathology showed CASSANDRA-2 to 3 with negative margins. ECC was negative. She states she has been having yearly Pap smears since the LEEP procedure and she states they have been negative. Her last gynecologic exam was about a year ago. 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 Review of Systems She states her weight can fluctuate from between 137 pounds to 145 pounds. She denies respiratory, cardiac, or GI problems. Past Medical History Past Medical History: Pneumonia, Thyroid Disorder Additional Past Medical History / Comment(s): hx migraines, endometriosis, occ low BP, no current tx for thyroid. Past [employer]ING [employer] history: LEEP procedure of the cervix in 2019 for high-grade LEN of the cervix. Possible HPV past. No other history of STDs. History of endometriosis. History of Any Multi-Drug Resistant Organisms: None Reported Past Surgical History: Adenoidectomy, Section, Tonsillectomy Additional Past Surgical History / Comment(s): . laparoscopic surgery with left ovarian cyst removal, wisdom tooth extraction. LEEP procedure of the cervix and laparoscopic examination (negative for endometriosis) 2019. Past Anesthesia/Blood Transfusion Reactions: Motion Sickness Past Psychological History: Anxiety (Currently not requiring medication.) Additional Psychological History / Comment(s): occ. 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 - Past Family History Mother Family Medical History: Thyroid Disorder Additional Family Medical History / Comment(s): Paternal grandmother had breast, pancreatic, and lung cancer. Father Family Medical History: Myocardial Infarction ([place]) Additional Family Medical History / Comment(s): Paternal aunt had uterine cancer. Paternal grandmother had breast cancer. Medications and Allergies Home Medications Medication Instructions Recorded Confirmed Type Multivitamins, Thera [Multivitamin 1 tab PO DAILY 06/18/20 02/21/24 History (formulary)] Ibuprofen [Motrin] 600 mg PO Q6HR PRN #40 tab 06/20/20 02/21/24 Rx Allergies Allergy/AdvReac Type Severity Reaction Status Date / Time No Known Allergies Allergy Verified 02/21/24 13:33 Exam Vital Signs Temp Pulse Resp BP Pulse Ox 02/21/24 13:35 98.4 F 88 16 122/89 99 Intake and Output 02/21/24 02/21/24 02/21/24 06:59 14:59 22:59 Other: Weight 66.224 kg Height 5 feet 6 inches, weight 146 pounds, BMI 23.6. This is a well-developed well-nourished white female who is alert and oriented times 3 in no acute distress. HEENT: Within normal limits. NECK: Supple without mass or thyromegaly. CHEST AND LUNGS: Clear to auscultation. HEART: Regular rate and rhythm. BREASTS: Are without mass or discharge. AXILLARY EXAM: Negative for adenopathy. BACK: Negative for CVA tenderness. ABDOMEN: Soft, nontender, without palpable masses. PELVIC EXAM: Normal external genitalia. Vagina appears normal. The cervix is quite short and much of the cervix is fairly flush with the back of the vagina. There are no lesions. The findings are consistent with previous LEEP procedure of the cervix. There is no unusual discharge. There is no evidence of prolapse. The uterus is midposition, nongravid size and nontender. There are no palpable adnexal masses or tenderness. RECTAL EXAM: Rectovaginal exam is negative for mass or tenderness and is negative for occult blood. EXTREMITIES: Nontender. IMPRESSION: 1. 43-year-old female using abstinence for control with normal gynecologic exam. 2. History of LEEP procedure of the cervix in 2019 for high-grade ELN of the cervix. Final pathology was CASSANDRA 2-3 with negative margins and negative ECC. 3. Incomplete database. The Pap smear findings before the LEEP procedure and colposcopic examination is not known at this time. Her Pap smears following the LEEP procedure were normal per the patient. 4. History of mild dysmenorrhea not requiring regular pain medication. 5. History of endometriosis in the past with negative laparoscopic examination on 07/21/2020. See Dr. Rodgers's operative report. PLAN: 1. Pap smear cotest was performed. The patient will try to get records from Dr. Rodgers's office regarding the abnormal Pap smear that led to the colposcopic examination in 2019. If today's Pap smear cotest is negative and we are unable to obtain records from Dr. Rodgers's office, we will plan on repeating the Pap smear cotest in 1 year. 2. Self breast awareness was discussed with the patient. We have also discussed symptoms associated with inflammatory breast cancer. 3. Screening mammogram is due and the order slip was given to the patient for this. 4. Osteoporosis prevention was discussed. I have stressed the importance of adequate calcium, vitamin D and regular exercise. Recommended amounts of calcium and vitamin D were also discussed. 5. Will plan to use abstinence and condoms for control. If she desires any other method of control she will make an appointment to further discuss options. 6. She was advised to return in one year for her annual well woman exam and as needed.
== END ==
LOC: WWCWWP 13:08
PROVIDERS: ATTEND Obstetrics & Gynecology
DX: Z01.419 Encounter for gynecological examination (general) (routine) without abnormal findings (principal); Z80.3 Family history of malignant neoplasm of breast; Z87.42 Personal history of other diseases of the female genital tract; Z98.890 Other specified postprocedural states

== ENCOUNTER → 2024-02-23 | Outpatient (CLI) | payer OTHER ==
--- NOTE | 2024-02-23 13:30 | MM ---
Reason for Exam: Screening (asymptomatic). Last mammogram was performed 1 year(s) and 5 month(s) ago. Patient History: Menarche at age 16. First Full-Term at age 35. Late child-bearing (after 30). Premenopausal. Patient has history of breast feeding. Hormonal Contraceptives, starting at age 18. Paternal grandmother had breast cancer, age 56. Maternal grandmother had breast cancer, age 77. Paternal aunt had ovarian cancer, age 40. Last menstrual period: 02/02/2024 Risk Values: Ariana 5 year model risk: 0.8%. NCI Lifetime model risk: 12.4%. Prior Study Comparison: 12/01/2018 Bilateral Screening Mammogram, [facility]. 02/06/2021 Bilateral Screening Mammogram, [facility]. 10/07/2022 Bilateral MG 3D screening mammo w/cad, [facility]. Tissue Density: The breasts are heterogeneously dense, which may obscure small masses. Findings: Analyzed By CAD. Right breast: There is no suspicious group of microcalcifications or new suspicious mass. Left breast: There is no suspicious group of microcalcifications or new suspicious mass. Overall Assessment: Negative, BI-RAD 1 Management: Screening Mammogram of both breasts in [address] [facility] will attempt to contact patient to return for supplemental views and ultrasound if indicated. Patient should continue monthly self-breast exams. A clinical breast exam by your physician is recommended on an annual basis. This exam should not preclude additional follow-up of suspicious palpable abnormalities. Note on Ariana scores and lifetime risk: 1. A Ariana score greater than 3% is considered moderate risk. If this is the case, consider specialist referral to assess eligibility for a risk reducing agent. 2. If overall lifetime risk for the development of breast cancer is 20% or higher, the patient may qualify for future screening with alternating mammogram and breast MRI. Electronically signed and approved by: Julio Mariano DO
== END | disposition home or self-care (01) ==
LOC: RADMAMWWP 08:36
PROVIDERS: ATTEND Obstetrics & Gynecology
DX: Z12.31 Encounter for screening mammogram for malignant neoplasm of breast (principal); Z80.3 Family history of malignant neoplasm of breast
CPT/HCPCS: 77063; 77067